=== PATIENT | female | born 1995 | race Caucasian/White ===

== ENCOUNTER 2019-01-30 05:23 | Emergency (ER) | payer OTHER | END 2019-01-30 06:20 | disposition other institution (70) | LOC: ED 05:23 | DX: Z02.89 Encounter for other administrative examinations (principal) ==

== ENCOUNTER 2019-01-30 05:23 | Emergency (ER) | payer SELFPAY ==
[~2019-01-30] VITALS: Ht 162.6 cm; Wt 63.5 kg
[2019-01-30 05:29] VITALS: Ht 162.6 cm; Wt 63.5 kg
[2019-01-30 06:20] VITALS: BP 105/61
== END 2019-01-30 06:20 | disposition other institution (70) ==
LOC: ED 05:23
DX: O26.892 Other specified pregnancy related conditions, second trimester (principal); R11.0 Nausea; Z3A.16 16 weeks gestation of pregnancy; Z13.89 Encounter for screening for other disorder